=== PATIENT | male | born 1945 | race Caucasian/White ===

== ENCOUNTER 2020-01-18 21:05 | Inpatient (IN) | payer MEDICARE ==
[~2020-01-18] VITALS: Ht 180.3 cm; Wt 79.4 kg
[2020-01-19] MEDS ORDERED: ACETAMINOPHEN 325 MG TABLET PO PRN (00:30)
[2020-01-19] MEDS ORDERED: LORAZEPAM 0.5 MG TABLET PO PRN (00:30)
[2020-01-19] MEDS ORDERED: MAG HYDROX/AL HYDROX/SIMETH 30 ML UDC PO PRN (00:30)
[2020-01-19] MEDS ORDERED: ZOLPIDEM TARTRATE 5 MG TABLET PO PRN (00:30)
[2020-01-19] MEDS ORDERED: BLOOD SUGAR DIAGNOSTIC 1 EACH STRIP IN ONE (00:30)
[2020-01-19 01:56] VITALS: BP 90/55
[2020-01-19] MEDS ORDERED: QUET100T PO (02:39)
[2020-01-19] MEDS ORDERED: DIVA500T2 PO (02:39)
[2020-01-19 06:45] LABS: CALCIUM, SERUM 8.9 mg/dL (8.5-10.1); CARBON DIOXIDE 26 mmol/L (21-32); CHLORIDE 107 mmol/L (98-107); CREATININE 1.4 mg/dL (0.6-1.3); GLUCOSE 97 mg/dL (74-106); POTASSIUM 4.2 mmol/L (3.5-5.1); SODIUM SERUM 144 mmol/L (136-145); UREA NITROGEN, BLOOD 28 mg/dL (7-18)
[2020-01-19 08:00] VITALS: BP 97/68
[2020-01-19 16:00] VITALS: BP 131/84
[2020-01-19 20:04] VITALS: BP 127/89
[2020-01-19 20:48] LABS: CREATININE, URINE 193.3 MG/DL (30.0-125.0); URINE TOTAL PROTEIN 33.1 mg/dL (0-11.9)
[2020-01-19] MEDS: DIVALPROEX SODIUM 250 MG TABLET.DR PO SCH (20:59)
[2020-01-19 21:14] LABS: APPEARANCE,URINE CLEAR (CLEAR); BILIRUBIN,URINE NEGATIVE (NEGATIVE); BLOOD, URINE NEGATIVE Ery/uL (NEGATIVE); COLOR,URINE YELLOW (YELLOW); KETONES,URINE NEGATIVE (NEGATIVE); LEUKOCYTE ESTERASE ,URINE NEGATIVE (NEGATIVE); NITRITE, URINE NEGATIVE (NEGATIVE); PROTEIN,URINE NEGATIVE (NEGATIVE); UGLUCOSE NEGATIVE (NEGATIVE); UROBILINOGEN,URINE 0.2 EU/dL (0.2)
[2020-01-19] MEDS ORDERED: QUETIAPINE FUMARATE 100 MG TABLET PO SCH (22:00)
[2020-01-19 22:10] LABS: EOSINOPHIL,URINE None Seen
[2020-01-20 06:50] LABS: BASOPHILS % (AUTO) 0.5 % (0.0-2.0); EOSINOPHILS % (AUTO) 3.3 % (0.0-6.0); HEMATOCRIT 42 % (39-51); LYMPHOCYTES # (AUTO) 0.8 /CMM (0.8-4.8); MEAN CORPUSCULAR HGB CONC 33 g/dl (31.0-36.0); MEAN CORPUSCULAR VOLUME 101 fL (80-96); MONOCYTES # (AUTO) 0.5 /CMM (0.1-1.30); MONOCYTES % (AUTO) 12.2 % (2.0-12.0); NEUTROPHILS # (AUTO) 2.6 /CMM (1.8-8.9); PLATELET COUNT (AUTO) 156 /CMM (150-450); RED BLOOD CELL COUNT(AUTO) 4.18 MIL/uL (4.5-6.0); WHITE BLOOD COUNT (AUTO) 4.1 K/uL (4.3-11.0)
[2020-01-20 07:15] LABS: ALBUMIN 2.9 g/dL (3.4-5.0); BILIRUBIN,TOTAL 0.5 mg/dL (0.2-1.0); CALCIUM, SERUM 8.6 mg/dL (8.5-10.1); PHOSPHORUS 3.2 mg/dL (2.5-4.9); TOTAL PROTEIN, SERUM 5.6 g/dL (6.4-8.2)
[2020-01-20 08:00] VITALS: BP 116/77
[2020-01-20] MEDS: QUETIAPINE FUMARATE 100 MG TABLET PO SCH (08:42)
[2020-01-20] MEDS: DIVALPROEX SODIUM 250 MG TABLET.DR PO SCH ×2 (08:42→20:32)
[2020-01-20] MEDS: MAGNESIUM HYDROXIDE 30 ML UDC PO PRN (11:36)
[2020-01-20 16:00] VITALS: BP 120/83
[2020-01-20 20:00] VITALS: BP 114/76
[2020-01-20] MEDS ORDERED: QUETIAPINE FUMARATE 100 MG TABLET PO SCH ×3 (21:00→22:00)
[2020-01-21 07:17] LABS: ALBUMIN 2.9 g/dL (3.4-5.0); BILIRUBIN,TOTAL 0.4 mg/dL (0.2-1.0); CALCIUM, SERUM 8.4 mg/dL (8.5-10.1); POTASSIUM 4.2 mmol/L (3.5-5.1); TOTAL PROTEIN, SERUM 5.6 g/dL (6.4-8.2)
[2020-01-21 08:00] VITALS: BP 110/69
[2020-01-21] MEDS: QUETIAPINE FUMARATE 100 MG TABLET PO SCH (08:00)
[2020-01-21] MEDS: DIVALPROEX SODIUM 250 MG TABLET.DR PO SCH ×3 (08:00→17:06)
[2020-01-21] MEDS: MAGNESIUM HYDROXIDE 30 ML UDC PO PRN (10:51)
[2020-01-21 16:00] VITALS: BP 116/54
[2020-01-21] MEDS: DOCUSATE SODIUM 100 MG CAPSULE PO SCH (17:00)
[2020-01-21] MEDS ORDERED: BISACODYL SUPP (10 MG) 10 MG/SUPP.RECT SUPP.RECT RC PRN (17:00)
[2020-01-21 20:00] VITALS: BP 106/73
[2020-01-21] MEDS ORDERED: QUETIAPINE FUMARATE 100 MG TABLET PO SCH (21:00)
[2020-01-21] MEDS ORDERED: DIVALPROEX SODIUM 250 MG TABLET.DR PO SCH (22:00)
[2020-01-22 07:08] LABS: BASOPHILS % (AUTO) 0.5 % (0.0-2.0); EOSINOPHILS % (AUTO) 4.4 % (0.0-6.0); HEMATOCRIT 44 % (39-51); HEMOGLOBIN 14.3 g/dL (13.5-17.5); LYMPHOCYTES # (AUTO) 0.5 /CMM (0.8-4.8); LYMPHOCYTES % (AUTO) 12.6 % (20.0-44.0); MEAN CORPUSCULAR HGB CONC 33 g/dl (31.0-36.0); MEAN CORPUSCULAR VOLUME 100 fL (80-96); MONOCYTES # (AUTO) 0.6 /CMM (0.1-1.30); MONOCYTES % (AUTO) 15.2 % (2.0-12.0); NEUTROPHILS # (AUTO) 2.8 /CMM (1.8-8.9); NEUTROPHILS % (AUTO) 67.3 % (43.0-81.0); PLATELET COUNT (AUTO) 141 /CMM (150-450); RED BLOOD CELL COUNT(AUTO) 4.35 MIL/uL (4.5-6.0); WHITE BLOOD COUNT (AUTO) 4.1 K/uL (4.3-11.0)
[2020-01-22 07:35] LABS: ALBUMIN 2.9 g/dL (3.4-5.0); BILIRUBIN,DIRECT 0.1 mg/dL (0.0-0.2); BILIRUBIN,TOTAL 0.5 mg/dL (0.2-1.0); CALCIUM, SERUM 8.5 mg/dL (8.5-10.1); TOTAL PROTEIN, SERUM 5.7 g/dL (6.4-8.2)
[2020-01-22] MEDS: DOCUSATE SODIUM 100 MG CAPSULE PO SCH (08:21)
[2020-01-22] MEDS: QUETIAPINE FUMARATE 100 MG TABLET PO SCH (08:21)
[2020-01-22] MEDS: DIVALPROEX SODIUM 250 MG TABLET.DR PO SCH (08:21)
[2020-01-22 08:30] VITALS: BP 124/77
[2020-01-22] MEDS ORDERED: ACETYLCYSTEINE 10% 3,000 MG/30 ML VIAL PO ONE (11:00)
[2020-01-22] MEDS ORDERED: ACETYLCYSTEINE 10% 3,000 MG/30 ML VIAL PO SCH (13:00)
[2020-01-22] MEDS ORDERED: ACET-868 PO (13:42)
[2020-01-22] MEDS ORDERED: ACET100V4 PO (13:42)
[2020-01-22] MEDS ORDERED: MAG30ORA PO (13:42)
[2020-01-22] MEDS ORDERED: BISA10SU11 RC (13:42)
[2020-01-22] MEDS ORDERED: DOCU-141 PO (13:42)
[2020-01-22] MEDS ORDERED: MAGN400O6 PO (13:42)
[2020-01-22] MEDS ORDERED: LORA-259 PO (13:42)
[2020-01-22] MEDS ORDERED: ZOLP5TAB8 PO (13:42)
[2020-01-22] MEDS ORDERED: QUETIAPINE FUMARATE 100 MG TABLET PO SCH (21:00)
[2020-01-25] MEDS ORDERED: QUET100T PO (15:32)
== END 2020-01-22 12:45 | disposition short-term general hospital (02) | DRG 885 ==
LOC: GPS 01-19 00:11
PROVIDERS: ADMIT Psychiatry & Neurology Psychiatry; ATTEND Nurse Practitioner Acute Care
DX: F31.64 Bipolar disorder, current episode mixed, severe, with psychotic features (principal); N17.0 Acute kidney failure with tubular necrosis; F29 Unspecified psychosis not due to a substance or known physiological condition; F41.9 Anxiety disorder, unspecified; E78.5 Hyperlipidemia, unspecified; M19.90 Unspecified osteoarthritis, unspecified site; N28.1 Cyst of kidney, acquired; N40.0 Benign prostatic hyperplasia without lower urinary tract symptoms; Z79.899 Other long term (current) drug therapy; Z85.72 Personal history of non-Hodgkin lymphomas; Z86.718 Personal history of other venous thrombosis and embolism; R74.0 Nonspecific elevation of levels of transaminase and lactic acid dehydrogenase [LDH]; Z85.820 Personal history of malignant melanoma of skin
CPT/HCPCS: 36415; 76700-TC; 80048-TC; 80053-TC; 80061-TC; 80076-TC; 80164-TC; 81000-TC; 82550-TC; 82570-TC; 83735-TC; 84100-TC; 84155-TC; 84300-TC; 85025-TC; 85610-TC; 87081-TC; G0480

== ENCOUNTER 2020-01-22 13:31 | Inpatient (IN) | payer MEDICARE ==
[~2020-01-22] VITALS: Ht 180.3 cm; Wt 80.3 kg
[2020-01-22 13:15] VITALS: BP 101/67
[2020-01-22] MEDS ORDERED: LORA-259 PO (13:42)
[2020-01-22] MEDS ORDERED: BISA10SU11 RC (13:42)
[2020-01-22] MEDS ORDERED: ACET100V4 PO (13:42)
[2020-01-22] MEDS ORDERED: ZOLP5TAB8 PO (13:42)
[2020-01-22] MEDS ORDERED: MAG30ORA PO (13:42)
[2020-01-22] MEDS ORDERED: MAGN400O6 PO (13:42)
[2020-01-22] MEDS ORDERED: DOCU-141 PO (13:42)
[2020-01-22] MEDS ORDERED: ACET-868 PO (13:42)
--- NOTE | 2020-01-22 14:15 | NUR ---
MS SCHOOL AGE PROGRAM TEACHER NOTES RECEIVED PT IN A WHEELCHAIR. DIRECT ADMIT FROM GPS. PT ARRIVED IN THE UNIT AT 1310. VS TAKEN AND RECORDED. PT A/O X3-4, AMBULATORY WITH STEADY GAIT. PT TOLERATING RA, WITH NO ACUTE RESPIRATORY DISTRESS NOTED. PT DENIES ANY PAIN OR DISCOMFORT AT THE TIME OF TRANSFER. PT ABLE TO PROVIDE HISTORY. PT ORIENTED TO THE ROOM, STAFF, BATHROOM, MEALS, ETC. SKIN ASSESSED AND INTACT; NOTED COUPLE SCABS AND INCISION SCARS AND FILED IN THE CHART. PIV INSERTED TO RFA G20, FLUSHED WITH NS, INTACT AND OPERATIONAL. PT KEPT COMFORTABLE IN BED. CALL LIGHT KEPT WITHIN REACH. PT AWARE HE IS ON 14-DAY HOLD. SITTER AT BEDSIDE PRESENT. PT'S BED IN LOWEST, LOCKED POSITION X2. ADVENTURE EDUCATION TEACHER/CN MADE AWARE OF ADMISSION, ORDERS TO PLACE. WILL CONTINUE PLAN OF CARE.
--- NOTE | 2020-01-22 14:30 | NUR ---
MS RN NOTES PT DENIES ANY OF SOCIAL ISSUES. ALSO DENIES ANY SUICIDAL IDEATIONS. PT HAS SITTER AT BEDSIDE. WILL CONTINUE TO MONITOR.
[2020-01-22] MEDS ORDERED: ACETYLCYSTEINE IV 12,000 MG in IV D5W 200 ML IV ONE (15:00)
[2020-01-22] MEDS ORDERED: ONDANSETRON HCL/PF 4 MG/2 ML VIAL IVP PRN (15:00)
[2020-01-22] MEDS ORDERED: MAG HYDROX/AL HYDROX/SIMETH 30 ML UDC PO PRN (15:00)
[2020-01-22] MEDS ORDERED: BISACODYL SUPP (10 MG) 10 MG/SUPP.RECT SUPP.RECT RC PRN (15:00)
[2020-01-22] MEDS ORDERED: Z GUARD REMEDY 2 OZ OINT TP PRN (15:00)
[2020-01-22] MEDS ORDERED: MAGNESIUM HYDROXIDE 30 ML UDC PO PRN (15:00)
[2020-01-22] MEDS ORDERED: ACETYLCYSTEINE IV 4,000 MG in IV D5W 500 ML IV ONE (16:00)
[2020-01-22] MEDS: DOCUSATE SODIUM 100 MG CAPSULE PO SCH (16:20)
[2020-01-22 17:19] LABS: ALBUMIN 2.7 g/dL (3.4-5.0); BILIRUBIN,DIRECT 0.1 mg/dL (0.0-0.2); BILIRUBIN,TOTAL 0.3 mg/dL (0.2-1.0); TOTAL PROTEIN, SERUM 5.8 g/dL (6.4-8.2)
--- NOTE | 2020-01-22 18:27 | NUR ---
MS RN CLOSING NOTES PT REMAINS IN BED, A/O X3-4, AMBULATORY WITH STEADY GAIT. SITTER AT BEDSIDE PRESENT. PT TOLERATING RA, WITH NO ACUTE RESPIRATORY DISTRESS NOTED. PT DENIES ANY PAIN OR DISCOMFORT AT THE MOMENT. PIV INSERTED TO RFA G20, FLUSHED WITH NS, INTACT AND OPERATIONAL. ALL NEEDS AND CARE ATTENDED. PT KEPT COMFORTABLE IN BED. CALL LIGHT KEPT WITHIN REACH. PT'S BED IN LOWEST, LOCKED POSITION X2. WILL ENDORSE TO INCOMING NIGHT NURSE FOR [facility]ALEY.
--- NOTE | 2020-01-22 19:24 | NUR ---
MS RN OPENING NOTES PATIENT AWAKE IN BED. A/OX3. ON 5250 HOLD; SITTER PRESENT AT THE BEDSIDE. ON ROOM AIR. NO S/S OF SOB OR C/O PAIN AT THIS TIME. PATIENT DENIES SI/HI/. IV PRESENT ON RIGHT FOREARM, SIZE 20, INTACT & PATENT, HEP LOCKED. PATIENT ABLE TO VERBALIZE NEEDS. SAFETY MEASURES IN PLACE. BED LOCKED, SIDE RAILS X2, CALL LIGHT WITHIN REACH. WILL CONTINUE TO MONITOR.
[2020-01-22] MEDS ORDERED: ACETYLCYSTEINE IV 8,000 MG in IV D5W 1,000 ML IV ONE (20:00)
[2020-01-22 20:14] VITALS: BP 120/81
--- NOTE | 2020-01-22 20:45 | NUR ---
MS RN NOTES SPOKE TO FABIAN FROM POISON CONTROL VIA TELEPHONE. PER FABIAN, CHECK PATIENT'S LIVER ENZYMES AND INR 1 HOUR BEFORE ACETYLCYSTEINE INFUSION IS COMPLETED AND FOLLOW UP WITH POISON CONTROL .
[2020-01-22] MEDS: LORAZEPAM 1 MG TABLET PO PRN (21:49)
--- NOTE | 2020-01-22 21:54 | NUR ---
MS RN NOTES PATIENT REQUESTED ATIVAN. ADMINISTERED PRN ATIVAN 0.5MG. VITAL SIGNS - BP:112/65 HR: 81 RR: 20 SPO2: 97 ON ROOM AIR. WILL CONTINUE TO MONITOR.
[2020-01-22 22:59] LABS: ALBUMIN 2.8 g/dL (3.4-5.0); BILIRUBIN,DIRECT 0.1 mg/dL (0.0-0.2); BILIRUBIN,TOTAL 0.4 mg/dL (0.2-1.0); TOTAL PROTEIN, SERUM 5.8 g/dL (6.4-8.2)
[2020-01-23 06:34] LABS: BASOPHILS % (AUTO) 0.6 % (0.0-2.0); EOSINOPHILS % (AUTO) 4.4 % (0.0-6.0); HEMATOCRIT 43 % (39-51); HEMOGLOBIN 14.4 g/dL (13.5-17.5); LYMPHOCYTES # (AUTO) 0.5 /CMM (0.8-4.8); LYMPHOCYTES % (AUTO) 11.6 % (20.0-44.0); MEAN CORPUSCULAR HGB CONC 33 g/dl (31.0-36.0); MEAN CORPUSCULAR VOLUME 99 fL (80-96); MONOCYTES # (AUTO) 0.8 /CMM (0.1-1.30); MONOCYTES % (AUTO) 19.8 % (2.0-12.0); NEUTROPHILS # (AUTO) 2.7 /CMM (1.8-8.9); NEUTROPHILS % (AUTO) 63.6 % (43.0-81.0); PLATELET COUNT (AUTO) 148 /CMM (150-450); RED BLOOD CELL COUNT(AUTO) 4.37 MIL/uL (4.5-6.0); WHITE BLOOD COUNT (AUTO) 4.2 K/uL (4.3-11.0)
--- NOTE | 2020-01-23 06:56 | NUR ---
MS RN CLOSING NOTES PATIENT SLEEPING IN BED, EASY TO AWAKEN. SITTER PRESENT AT THE BEDSIDE. PATIENT REMAINED STABLED DURING SHIFT. IV ON RIGHT FA, SIZE 20, INTACT & PATENT WITH ACETYLCYSTEINE IV RUNNING AT 65 ML/HR. SAFETY MEASURES IN PLACE. BED LOCKED, SIDE RAILS X2, CALL LIGHT WITHIN REACH. WILL ENDORSE TO DAY SHIFT NURSE PLAN OF CARE.
[2020-01-23 07:09] LABS: THYROID STIMULATING HORMONE 4.718 uIU/mL (0.358-3.74)
[2020-01-23 07:16] LABS: ALBUMIN 2.7 g/dL (3.4-5.0); BILIRUBIN,DIRECT 0.1 mg/dL (0.0-0.2); BILIRUBIN,TOTAL 0.3 mg/dL (0.2-1.0); CALCIUM, SERUM 8.7 mg/dL (8.5-10.1); PHOSPHORUS 2.9 mg/dL (2.5-4.9); POTASSIUM 4.1 mmol/L (3.5-5.1); TOTAL PROTEIN, SERUM 5.7 g/dL (6.4-8.2)
--- NOTE | 2020-01-23 07:30 | NUR ---
MS/RN OPENING NOTE Patient is resting in bed, A/O x4, showing no signs of acute distress or SOB, stable on RA. IV line in the RFA #20g is clean and intact running acetylcysteine @ 65ml/hr. Per maintenance technician 3rd shift RN, there is order for lab to draw LFTs 1 hour before medication is finished and to update poison control with labs and patient condition (poison control). Bed is in lowest position, side rails x3 in upright position, call light is within reach and patient is aware of how to call for assistance when needed. Sitter is at the bedside, patient is on 5250 hold. Will continue with plan of care.
[2020-01-23 08:00] VITALS: BP 120/70
[2020-01-23] MEDS: DOCUSATE SODIUM 100 MG CAPSULE PO SCH ×2 (08:22→17:00)
[2020-01-23 11:58] LABS: ALBUMIN 2.8 g/dL (3.4-5.0); BILIRUBIN,DIRECT 0.1 mg/dL (0.0-0.2); BILIRUBIN,TOTAL 0.3 mg/dL (0.2-1.0); TOTAL PROTEIN, SERUM 5.9 g/dL (6.4-8.2)
[2020-01-23] MEDS: LORAZEPAM 1 MG TABLET PO PRN ×2 (12:00→20:16)
--- NOTE | 2020-01-23 14:11 | NUR ---
MS/RN NOTE Spoke with Nolberto from poison control and updated her on patient's LFT results. She stated that patient has completed their dose of acetylcysteine.
[2020-01-23 16:00] VITALS: BP 128/77
--- NOTE | 2020-01-23 16:25 | NUR ---
MS/RN NOTE Ativan 0.5mg given at 1200. Scanned medication but forgot to save. Patient is A/O x4, patient is aware.
[2020-01-23 17:13] VITALS: BP 128/77
--- NOTE | 2020-01-23 19:05 | NUR ---
RN MS OPENING NOTES RECEIVED PATIENT IN ROOM AWAKE ALERT AND ORIENTED X 3, ABLE TO MAKE SIMPLE NEEDS KNOWN, RESPIRATIONS EVEN AND UNLABORED WITH EQUAL RISE AND FALL OF CHEST, DENIES ANY PAIN OR DISCOMFORT AT THIS TIME, IV SITE TO RIGHT FA #20 G INTACT AND PATENT NO REDNESS, NO INFILTRATION PRESENT, SITTER AT BEDSIDE, SAFETY PRECAUTIONS IN PLACE, LOW BED AND LOCKED, Q 15 MINS CHECKS DONE. FLUIDS AND SNACKS OFFERED.REMAINS COMFORTABLE AT THIS TIME. ALL NEEDS ATTENDED WILL CONTINUE TO MONITOR.
--- NOTE | 2020-01-23 19:36 | NUR ---
MS/RN CLOSING NOTE Patient is resting in bed, A/O x4, showing no signs of acute distress or SOB, stable on RA. IV line in the RFA #20g is clean and intact s/l. All patient needs met, all due meds given. Bed is in lowest position, side rails x3 in upright position, call light is within reach and patient is aware of how to call for assistance when needed. Sitter is at the bedside, patient is on 5250 hold. Will continue with plan of care.
[2020-01-23 20:00] VITALS: BP 130/83
--- NOTE | 2020-01-23 20:16 | NUR ---
RN MS NOTES PATIENT COMPLAINT OF FEELING ANXIOUS STATES CAN I HAVE ATIVAN ATIVAN ORDERED GIVEN 0.5MG GIVEN THE REST WASTED AND WITNESS WITH ANOTHER RN.WILL CONTINUE TO MONITOR
[2020-01-23 20:18] VITALS: BP 130/83
--- NOTE | 2020-01-24 06:11 | NUR ---
rn ms notes patient refused follow up pictures for friday states I have no wounds just scab on my hand". left hand scab intact clean and dry.
--- NOTE | 2020-01-24 06:27 | NUR ---
RN MS CLOSING NOTES PATIENT IN ROOM AWAKE ALERT AND ORIENTED X 3, ABLE TO MAKE SIMPLE NEEDS KNOWN, RESPIRATIONS EVEN AND UNLABORED WITH EQUAL RISE AND FALL OF CHEST, DENIES ANY PAIN OR DISCOMFORT AT THIS TIME, IV SITE TO RIGHT FA #20 G INTACT AND PATENT NO REDNESS, NO INFILTRATION PRESENT, SITTER AT BEDSIDE, SAFETY PRECAUTIONS IN PLACE, LOW BED AND LOCKED, Q 15 MINS CHECKS DONE. FLUIDS, TOILETING AND SNACKS OFFERED.REMAINS COMFORTABLE AT THIS TIME. ALL NEEDS ATTENDED WILL CONTINUE TO MONITOR AND ENDORSE TO NEXT SHIFT, DID NOT VERBALIZE ANY SI OR HI.REMAINS CALM AND COOPERATE THROUGHOUT SHIFT.
--- NOTE | 2020-01-24 08:15 | NUR ---
m/s finish filer: md visit seen by dr. sin. ask md re: gi consult on his progress notes, per md nñuez saw him on the at 1504 per his progress notes in gps unit.
[2020-01-24] MEDS: DOCUSATE SODIUM 100 MG CAPSULE PO SCH ×2 (08:34→17:00)
--- NOTE | 2020-01-24 09:00 | NUR ---
m/s mold cutting machine operator: psych f/u seen by dr. mock and per dr. mock will not start him on psych medications yet until his liver function gets better. pt made aware. sitter remains at bedside. will continue to monitor.
[2020-01-24 09:30] VITALS: BP 119/73
--- NOTE | 2020-01-24 09:45 | NUR ---
m/s warp preparer: notes mrsa suirvellance collected to nostrils. called lab to tile picker the specimen in ref, spoke to ayanna.
--- NOTE | 2020-01-24 12:00 | NUR ---
m/s habitat conservation planner: notes having lunch at this time with sitter at bedside.
--- NOTE | 2020-01-24 15:00 | NUR ---
m/s garage hand: notes resting quietly in bed. sitter remains at bedside. no distress noted.
--- NOTE | 2020-01-24 18:32 | NUR ---
m/s nursing scheduler: notes resting comfortable in bed. no distress noted. will continue to monitor.
--- NOTE | 2020-01-24 19:05 | NUR ---
m/s sportspersons: notes bedside report given to laquita (rn) for continuity of care.
[2020-01-24 20:00] VITALS: BP 116/72
[2020-01-24] MEDS: LORAZEPAM 1 MG TABLET PO PRN (20:28)
[2020-01-25 08:28] LABS: BASOPHILS % (AUTO) 0.8 % (0.0-2.0); EOSINOPHILS % (AUTO) 4.9 % (0.0-6.0); HEMATOCRIT 46 % (39-51); HEMOGLOBIN 15.3 g/dL (13.5-17.5); LYMPHOCYTES # (AUTO) 0.9 /CMM (0.8-4.8); LYMPHOCYTES % (AUTO) 19.5 % (20.0-44.0); MEAN CORPUSCULAR HGB CONC 33 g/dl (31.0-36.0); MEAN CORPUSCULAR VOLUME 99 fL (80-96); MONOCYTES # (AUTO) 0.6 /CMM (0.1-1.30); MONOCYTES % (AUTO) 14.1 % (2.0-12.0); NEUTROPHILS # (AUTO) 2.7 /CMM (1.8-8.9); NEUTROPHILS % (AUTO) 60.7 % (43.0-81.0); PLATELET COUNT (AUTO) 167 /CMM (150-450); RED BLOOD CELL COUNT(AUTO) 4.63 MIL/uL (4.5-6.0); WHITE BLOOD COUNT (AUTO) 4.5 K/uL (4.3-11.0)
[2020-01-25 08:31] LABS: ALBUMIN 3.2 g/dL (3.4-5.0); BILIRUBIN,DIRECT 0.1 mg/dL (0.0-0.2); BILIRUBIN,TOTAL 0.5 mg/dL (0.2-1.0); CALCIUM, SERUM 9.2 mg/dL (8.5-10.1); CREATININE 1.2 mg/dL (0.6-1.3); POTASSIUM 4.3 mmol/L (3.5-5.1); TOTAL PROTEIN, SERUM 6.4 g/dL (6.4-8.2)
--- NOTE | 2020-01-25 09:10 | NUR ---
ms rn received on bed, awake,alert,oriented x4,not in any form of distress, respirations even and unlabored,no sob noted, lungs are clear,abdomen soft,positive bowel sounds,denies pain at this time,on 14 day hold, w/ a sitter for comfort and safety,will monitor patient.
--- NOTE | 2020-01-25 09:55 | NUR ---
ms dany breakfast served,due meds givjenise,tolerated well.
[2020-01-25] MEDS: DOCUSATE SODIUM 100 MG CAPSULE PO SCH ×2 (10:30→17:00)
--- NOTE | 2020-01-25 11:59 | NUR ---
Family Contact: SW called the pts son, Reilly ([phone]), and informed him that the SW recommends two of the following facilities ([facility] as well as [facility]) and will need to proceed with the discharge planning. Pts son stated that he will discuss the discharge planning options with his and will contact the SW soon so that referrals can be sent out.
--- NOTE | 2020-01-25 13:00 | NUR ---
ms rn was seen by dr. emili campbell/ orders made and carried out.
[2020-01-25] MEDS ORDERED: QUET100T PO (15:32)
[2020-01-25 16:00] VITALS: BP 107/77
--- NOTE | 2020-01-25 17:05 | NUR ---
ms rn ready to be transferred to [facility],refused to take picture on left hand w/ a small scab, clean and dry.
[2020-01-25] MEDS ORDERED: DOCU100C36 PO (17:52)
[2020-01-25] MEDS ORDERED: MAG30ORA PO (17:52)
[2020-01-25] MEDS ORDERED: MAGN400O6 PO (17:52)
[2020-01-25] MEDS ORDERED: LORA-259 PO (17:52)
[2020-01-25] MEDS ORDERED: BISA10SU11 RC (17:52)
[2020-01-25] MEDS ORDERED: ALLA266C2 TP (17:54)
--- NOTE | 2020-01-25 18:00 | NUR ---
ms rn patient transferred to [facility], report given to dany Walsh.
[2020-01-25] MEDS ORDERED: QUETIAPINE FUMARATE 100 MG TABLET PO SCH (22:00)
== END 2020-01-25 17:04 | DRG 917 ==
LOC: TELE 13:31 → MED 13:52
PROVIDERS: ADMIT Internal Medicine; ATTEND Nurse Practitioner Acute Care
DX: T39.1X1A Poisoning by 4-Aminophenol derivatives, accidental (unintentional), initial encounter (principal); N17.0 Acute kidney failure with tubular necrosis; R45.851 Suicidal ideations; F31.64 Bipolar disorder, current episode mixed, severe, with psychotic features; E78.5 Hyperlipidemia, unspecified; M19.90 Unspecified osteoarthritis, unspecified site; N40.0 Benign prostatic hyperplasia without lower urinary tract symptoms; Z85.820 Personal history of malignant melanoma of skin; Z86.718 Personal history of other venous thrombosis and embolism; F39 Unspecified mood [affective] disorder; Z91.5 Personal history of self-harm; R74.0 Nonspecific elevation of levels of transaminase and lactic acid dehydrogenase [LDH]; K71.2 Toxic liver disease with acute hepatitis; Y92.89 Other specified places as the place of occurrence of the external cause; Z85.72 Personal history of non-Hodgkin lymphomas
CPT/HCPCS: 36415; 80048-TC; 80061-TC; 80076-TC; 83735-TC; 84100-TC; 84443-TC; 85025-TC; 85610-TC; 87081-TC; G0378; J0132; J7040; J7060; J7070

== ENCOUNTER 2020-01-25 17:44 | Inpatient (IN) | payer MEDICARE ==
[~2020-01-25] VITALS: Ht 180.3 cm; Wt 81.2 kg
[~2020-01-25 17:44] MED LIST: ACET-868 PO; ACET100V4 PO; BISA10SU11 RC; DOCU-141 PO; LORA-259 PO; MAG30ORA PO; MAGN400O6 PO; QUET100T PO; ZOLP5TAB8 PO
[2020-01-25] MEDS ORDERED: BISA10SU11 RC (17:52)
[2020-01-25] MEDS ORDERED: DOCU100C36 PO (17:52)
[2020-01-25] MEDS ORDERED: MAG30ORA PO (17:52)
[2020-01-25] MEDS ORDERED: LORA-259 PO (17:52)
[2020-01-25] MEDS ORDERED: MAGN400O6 PO (17:52)
[2020-01-25] MEDS ORDERED: ALLA266C2 TP (17:54)
[2020-01-25 18:50] VITALS: BP 119/86
[2020-01-25] MEDS ORDERED: ACETAMINOPHEN 325 MG TABLET PO PRN (19:00)
[2020-01-25] MEDS ORDERED: LORAZEPAM 0.5 MG TABLET PO PRN (19:00)
[2020-01-25] MEDS ORDERED: MAGNESIUM HYDROXIDE 30 ML UDC PO PRN (19:00)
[2020-01-25] MEDS ORDERED: BLOOD SUGAR DIAGNOSTIC 1 EACH STRIP IN ONE (19:00)
[2020-01-25] MEDS ORDERED: MAG HYDROX/AL HYDROX/SIMETH 30 ML UDC PO PRN (19:00)
[2020-01-25] MEDS ORDERED: ZOLPIDEM TARTRATE 5 MG TABLET PO PRN (19:00)
--- NOTE | 2020-01-25 19:05 | NUR ---
GPS-RN NOTE: ADMISSION ADMITTED THIS 74-Y/O, MALE, FROM MED SURG, PATIENT ADMITTED ON 5250 HOLD. PER HOLD PT. SENT SUICIDAL TEXT TO SON AND MADE GESTURE BY OD ON TYLENOL. UPON FACE TO FACE ASSESSMENT, PATIENT IS A&O X1-3, FEELING DEPRESSED, WITH LIMITED INTERACTIONS WITH PEERS, COOPERATIVE WITH CARE. AMBULATORY WITH STEADY GAIT. IN NO APPARENT DISTRESS NOTED. SKIN ASSESSMENT DONE. PATIENT REFUSED TO SIGN ADMISSION CONSENTS D/T PT IS EXHAUSTED. PT'S RIGHTS HANDBOOK & PT. GUIDELINES BOOK GIVEN & DISCUSSED TO THE PATIENT. PT BELONGINGS WERE INVENTORIED & CHECKED FOR CONTRABAND. PT. IS UNDER THE PSYCHIATRIC CARE OF DR. COPELAND ORDERS OBTAINED & UNDER THE MEDICAL CARE OF DR. PEARSON. PAGED EPIC EVENT PROMOTER, SPOKE TO DR. MEGHANA SANTIAGO MADE AWARE OF PT'S ADMISSION AND MED RECON NEEDS TO BE DONE. PATIENT EDUCATED TO THE USE OF CALL RODRIGEZ. BED ALARM ON. ENVIRONMENTAL SAFETY CHECK DONE. BED LOCKED & IN LOW POSITION. WILL CONTINUE TO MONITOR Q15 MINUTES FOR SAFETY & BEHAVIOR.
[2020-01-25 20:09] VITALS: BP 118/71
[2020-01-25] MEDS: QUETIAPINE FUMARATE 100 MG TABLET PO SCH (21:27)
[2020-01-26 06:48] LABS: BASOPHILS % (AUTO) 0.7 % (0.0-2.0); EOSINOPHILS % (AUTO) 4.3 % (0.0-6.0); HEMATOCRIT 44 % (39-51); HEMOGLOBIN 14.6 g/dL (13.5-17.5); LYMPHOCYTES # (AUTO) 1.2 /CMM (0.8-4.8); LYMPHOCYTES % (AUTO) 26.1 % (20.0-44.0); MEAN CORPUSCULAR HGB CONC 33 g/dl (31.0-36.0); MEAN CORPUSCULAR VOLUME 99 fL (80-96); MONOCYTES # (AUTO) 0.5 /CMM (0.1-1.30); MONOCYTES % (AUTO) 10.4 % (2.0-12.0); NEUTROPHILS # (AUTO) 2.6 /CMM (1.8-8.9); NEUTROPHILS % (AUTO) 58.5 % (43.0-81.0); PLATELET COUNT (AUTO) 161 /CMM (150-450); RED BLOOD CELL COUNT(AUTO) 4.41 MIL/uL (4.5-6.0); WHITE BLOOD COUNT (AUTO) 4.5 K/uL (4.3-11.0)
[2020-01-26 06:58] LABS: CALCIUM, SERUM 8.9 mg/dL (8.5-10.1); CREATININE 1.1 mg/dL (0.6-1.3); POTASSIUM 4.2 mmol/L (3.5-5.1)
[2020-01-26 07:12] LABS: CHOLESTEROL 214 mg/dL (<200); HDL CHOLESTEROL 40 mg/dL (40-60); LDL 133 mg/dL (0-99); TRIGLYCERIDES 173 mg/dL (30-150)
[2020-01-26 08:00] VITALS: BP 130/78
--- NOTE | 2020-01-26 11:36 | NUR ---
Lionel Byrd made aware to reconcile meds and said ok.
--- NOTE | 2020-01-26 12:19 | NUR ---
Facility Referrals: Per pts son and probate conservator, Reilly ([phone]), SW faxed a referral to the following facilities. [facility] to the fax number: [phone] [facility] to the fax number: [phone]
--- NOTE | 2020-01-26 12:21 | NUR ---
Psychosocial Note: I, Quetajosseline De Leon MANAGER CARE, attest to the patients previous psychosocial information dated on 01/19/20. Update On Events leading to Admission and Discharge Plan: Pt has returned to the geropsych unit of the hospital within a week of his previous discharge date (01/22/20). Pt was discharged to the Medical Floor and then the pt came back to the Geriatric Psychiatric Unit on 01/25/20. Per hold, the pt was evaluated because he sent a suicidal text to his son and made gesture by overdose on tylenol. Upon face to face contact, the pt texted his son, "The pills did not workcall the construction quality control manager and come in the back room." Pt also stated, "Don't get involved or else I will run and you will find the body." Pt left detailed end of life instructions on his computer. As well as contacting the construction quality control manager and a mortuary today. Pt wanted to return to Assisted Living but cannot do so safely. Upon social service assistant evaluation, pt appears to be alert and oriented x4 (time, place, self and situation). Pt appears to be in a depressed mood and presents with a distressed affect. Pt states that his son was overreacting by this situation and states, "My son likes to put me in these places when he thinks that I am acting bizarre." Pt states that he does not have an appropriate appetite or sleeping pattern. Pt states that he lives at home alone and has been able to care for his own needs. Pts insight and judgment appear to be impaired and the pts impulse control is poor. DAVID spoke to the pts son and probate conservator, Reilly ([phone]), who stated that he would like to place the pt in an Assisted Living or a Memory Care Unit. DAVID will work with the pt, the pts son, and the MD regarding appropriate discharge planning. SW will form a safe and proper discharge.
[2020-01-26 16:00] VITALS: BP 110/77
[2020-01-26] MEDS: BISACODYL SUPP (10 MG) 10 MG/SUPP.RECT SUPP.RECT RC PRN (16:48)
[2020-01-26] MEDS ORDERED: Z GUARD REMEDY 2 OZ OINT TP SCH (17:30)
[2020-01-26] MEDS ORDERED: MAG HYDROX/AL HYDROX/SIMETH 30 ML UDC PO PRN (17:30)
[2020-01-26] MEDS ORDERED: BISACODYL SUPP (10 MG) 10 MG/SUPP.RECT SUPP.RECT RC SCH (17:30)
--- NOTE | 2020-01-26 19:51 | NUR ---
NURSES NOTES: RECEIVED PATIENT IN BED, AWAKE , ALERT, READING BOOK HIS ROOM , INTERACT WITH PEERS, NO COMPLAINS OF PAIN OR DISCOMFORT AT THIS TIME ,ENCOURAGED PT. TO EXPRESS FEELING SAFETY AND FALL PRECAUTIONS OBSERVED. Q15 MIN CHECKS CONTINUED. WILL CONTINUE TO MONITOR PATIENT FOR MOOD, SAFETY AND BEHAVIOR
[2020-01-26 20:22] VITALS: BP 114/50
[2020-01-26 20:37] VITALS: BP 118/65
[2020-01-26] MEDS: QUETIAPINE FUMARATE 100 MG TABLET PO SCH (21:20)
[2020-01-26] MEDS: MAGNESIUM HYDROXIDE 30 ML UDC PO SCH (21:25)
--- NOTE | 2020-01-26 21:33 | NUR ---
RN NOTES: MEDICATION REFUSAL PT. REFUSED MOM / MILK OF MAGNESIUM 30 ML PO HS ,PER PT. STATED I HAD BM AND NO NEEDED AT THIS TIME, WILL CONTINUITY WITH CARE.
[2020-01-27 08:00] VITALS: BP 108/75
[2020-01-27] MEDS: DOCUSATE SODIUM 100 MG CAPSULE PO SCH ×2 (09:00→16:32)
--- NOTE | 2020-01-27 09:01 | NUR ---
Facility Contact: Selena ([phone]) from [facility] called the SW and proceeded to ask the SW questions regarding the pts behavior. She stated that they have one bed available at this time and to have the family contact her directly if they are interested in placing the pt at their facility.
--- NOTE | 2020-01-27 09:33 | NUR ---
Facility Contact: SW called Ashley ([phone]) from [facility] to follow up on the referral for the pt. Ashley asked the SW questions regarding the pts behaviors and then stated that she would call the pt's son to discuss the finances with him. She stated she will call the SW back.
--- NOTE | 2020-01-27 15:40 | NUR ---
Individual Note: In lieu of group therapy due to COVID 19, SW met with the pt at bedside and informed him of his treatment plan. SW stated that she had referred him to two Assisted Livings that are interested in accepting the pt and that his son is working out the finances as his probate conservator. Pt stated that he feels as if he does not have many choices in his life anymore and he would just like to return to his home. SW stated that would not be a safe discharge due to his history and need for supervision. SW stated that he should talk to his son and come to a decision that they both can agree upon regarding his discharge.
[2020-01-27 16:00] VITALS: BP 111/69
--- NOTE | 2020-01-27 18:35 | NUR ---
PATIENT IN BED, AWAKE , ALERT, READING BOOK IN HIS ROOM , NO COMPLAINS OF PAIN OR DISCOMFORT AT THIS TIME ,ENCOURAGED PT. TO EXPRESS FEELING SAFETY AND FALL PRECAUTIONS OBSERVED. Q15 MIN CHECKS CONTINUED. WILL ENDORSE TO NEXT SHIFT FOR HALEY
[2020-01-27] MEDS: QUETIAPINE FUMARATE 100 MG TABLET PO SCH (19:34)
--- NOTE | 2020-01-27 20:03 | NUR ---
GPS/MATE FISHING VESSEL NOTES: PT. LAYING IN BED READING. NO DISTRESS OR AGITATION NOTED. QUIET AND COOPERATIVE AT THIS TIME. ISOLATIVE. NO C/O PAIN OR DISCOMFORT. SAFETY ENVIRONMENT OBSERVED AT ALL TIMES. WILL CONTINUE TO MONITOR Q 15 MIN FOR SAFETY AND BEHAVIOR.
[2020-01-27 20:42] VITALS: BP 115/77
[2020-01-27] MEDS: MAGNESIUM HYDROXIDE 30 ML UDC PO SCH (21:15)
[2020-01-28 07:12] LABS: BILIRUBIN,DIRECT 0.1 mg/dL (0.0-0.2); BILIRUBIN,TOTAL 0.4 mg/dL (0.2-1.0); TOTAL PROTEIN, SERUM 5.9 g/dL (6.4-8.2)
[2020-01-28 08:00] VITALS: BP 102/74
[2020-01-28] MEDS: DOCUSATE SODIUM 100 MG CAPSULE PO SCH ×2 (08:14→16:57)
--- NOTE | 2020-01-28 09:00 | NUR ---
RN NOTE- DEPRESSED, ISOLATIVE CALM DIRECTABLE. PT PO INTAKE GOOD. NO BEHAVIORAL ISSUES CURRENTLY DENIES SI HI AH VH
--- NOTE | 2020-01-28 11:06 | NUR ---
Facility Contact: Ashley ([phone]) from [facility] called the SW and stated that she spoke to the pts son and they are willing to go forward with [facility]. She stated that she will send the SW the 602 form and that she will also need a note from the MD stating that he believes the pt is safe to be discharged before the hold is up. SW stated that she will assist with the paperwork needed.
--- NOTE | 2020-01-28 11:09 | NUR ---
Family Contact: SW called the pts son and probate conservator, Reilly ([phone]), and left a voicemail stating that the SW would like to discuss the pts possible placement at [facility] with him.
--- NOTE | 2020-01-28 12:41 | NUR ---
Family Contact: Pts son and probate conservator, Reilly ([phone]), called the SW and stated that he would like to proceed with [facility] and so the SW stated that the projected discharge is for Friday. Pts son stated that he has concerns with the medications and stated that the pt did well on Depakote when he was previously at [facility]. SW encouraged him to get in touch with the psychiatrist regarding that concern. Pts son also stated that the 602 form would need to state that the pt has dementia and stated that he has paperwork from other physicians stating the pt has dementia that he would send to the SW.
[2020-01-28 16:00] VITALS: BP 101/79
--- NOTE | 2020-01-28 19:54 | NUR ---
GPS OPENING NOTE: PATIENT AWAKE, READING BOOKS, INTERACTIVE, DENIES SI/HI, NO AGITATION NOTED, NO S/S OF PAIN AND DISCOMFORT, WILL CONTINUE TO MONITOR Q15 MINS FOR SAFETY
[2020-01-28] MEDS: LORAZEPAM 1 MG TABLET PO PRN (20:13)
--- NOTE | 2020-01-28 20:15 | NUR ---
GPS RN NOTE: PATIENT C/O FEELING ANXIOUS, ATIVAN 1 MG PO GIVEN ORDERED AND PER PATIENT REQUEST. WILL CONTINUE TO MONITOR Q15 MINS FOR SAFETY
[2020-01-28] MEDS: QUETIAPINE FUMARATE 100 MG TABLET PO SCH (21:04)
[2020-01-28 21:16] VITALS: BP 112/73
[2020-01-28] MEDS: MAGNESIUM HYDROXIDE 30 ML UDC PO SCH (22:00)
--- NOTE | 2020-01-28 22:02 | NUR ---
GPS RN NOTE: REFUSED MOM PATIENT REFUSED MOM ORDERED, PATIENT STATED THAT HE ALREADY HAVE A BM. WILL CONTINUE TO MONITOR Q15 MINS FOR SAFETY
[2020-01-29 08:00] VITALS: BP 127/75
--- NOTE | 2020-01-29 08:00 | NUR ---
GPS/RN OPENING NOTE: RECEIVED PATIENT AWAKE, ALERT AND ORIENTED X 2-3, CALM, COOPERATIVE, NEEDY, DENIES SI/HI, AH/VH, NO AGITATION NOTED AT THIS TIME, WILL CONTINUE TO MONITOR Q15 MINS FOR SAFETY
[2020-01-29] MEDS: DOCUSATE SODIUM 100 MG CAPSULE PO SCH ×2 (08:30→16:59)
--- NOTE | 2020-01-29 08:32 | NUR ---
GPS RN NOTES PATIENT REFUSED DOCUSATE SODIUM.
[2020-01-29 16:00] VITALS: BP 110/70
[2020-01-29] MEDS: LORAZEPAM 1 MG TABLET PO PRN (19:56)
[2020-01-29 20:00] VITALS: BP 120/72
[2020-01-29 20:10] VITALS: BP 120/72
[2020-01-29] MEDS: QUETIAPINE FUMARATE 100 MG TABLET PO SCH (21:24)
[2020-01-29] MEDS: MAGNESIUM HYDROXIDE 30 ML UDC PO SCH (21:24)
[2020-01-30 08:00] VITALS: BP 104/75
[2020-01-30] MEDS: DOCUSATE SODIUM 100 MG CAPSULE PO SCH ×2 (08:29→16:37)
--- NOTE | 2020-01-30 09:28 | NUR ---
GPS RN NOTED: PATIENT AWAKE, RESTING IN BED ISOLATIVE DENIES SI/HI DENIES FEELING DEPRESSED COMPLIANT WITH AM MEDICATIONS NO S/S DISTRESS NOTED WILL CONTINUE TO MONITOR Q15 MINS FOR SAFETY AND BEHAVIOR.
[2020-01-30 16:00] VITALS: BP 116/90
[2020-01-30] MEDS: LORAZEPAM 1 MG TABLET PO PRN (19:23)
[2020-01-30 20:00] VITALS: BP 117/87
[2020-01-30] MEDS: QUETIAPINE FUMARATE 100 MG TABLET PO SCH (20:02)
[2020-01-30 20:04] VITALS: BP 117/87
[2020-01-30] MEDS: MAGNESIUM HYDROXIDE 30 ML UDC PO SCH (21:15)
[2020-01-31 08:00] VITALS: BP 119/52
[2020-01-31] MEDS: DOCUSATE SODIUM 100 MG CAPSULE PO SCH ×2 (08:10→16:40)
--- NOTE | 2020-01-31 09:00 | NUR ---
RN NOTE- PATIENT AWAKE, RESTING IN BED ISOLATIVE DENIES SI/HI DENIES FEELING DEPRESSED COMPLIANT WITH AM MEDICATIONS NO S/S DISTRESS NOTED WILL CONTINUE TO MONITOR Q15 MINS FOR SAFETY AND BEHAVIOR
--- NOTE | 2020-01-31 09:38 | NUR ---
Facility Contact: Ashley ([phone]) from [facility] called the SW and stated that she would need the Physicians Report to be sent over soon so that they can assist with placement.
--- NOTE | 2020-01-31 11:35 | NUR ---
Facility Referral: DAVID faxed an unsigned Physicians Report and a note from the MD as a suicidal clearance to [facility] with attn to Ashley to the fax number: [phone].
[2020-01-31 12:44] LABS: ALBUMIN 3.3 g/dL (3.4-5.0); BILIRUBIN,DIRECT 0.1 mg/dL (0.0-0.2); BILIRUBIN,TOTAL 0.4 mg/dL (0.2-1.0); TOTAL PROTEIN, SERUM 6.3 g/dL (6.4-8.2)
[2020-01-31] MEDS: BISACODYL SUPP (10 MG) 10 MG/SUPP.RECT SUPP.RECT RC PRN (14:33)
--- NOTE | 2020-01-31 14:33 | NUR ---
RN NOTE- PT C/O NO BM X 3 DAYS. REQUESTED DULCOLAX SUPPOSITORY. ADMINISTERED NOW.
--- NOTE | 2020-01-31 14:40 | NUR ---
Facility Contact: Ashley ([phone]) from [facility] called the SW and stated that the pt was accepted to their facility.
--- NOTE | 2020-01-31 14:40 | NUR ---
Facility Referral: DAVID faxed a completed Physicians Report and a note from the MD as a suicidal clearance to [facility] with attn to Ashley to the fax number: [phone].
--- NOTE | 2020-01-31 14:48 | NUR ---
Family Contact: SW called the pts son and probate conservator, Reilly ([phone]), who stated that he understands that the pt will be moved tomorrow and that he can help move his dad in. He stated that he would come brain picker the pt but is unsure about the time at this point.
--- NOTE | 2020-01-31 15:26 | NUR ---
Individual Note: In lieu of group therapy due to COVID 19, SW met with the pt in the activities room and informed him that he was going to be discharged the following day. SW stated that he is going to a facility that his son has approved called [facility] and he stated that he accepts this plan.
[2020-01-31 16:00] VITALS: BP_SYST 113; BP_SYST 152; BP_DIAS 55; BP_DIAS 80
[2020-01-31] MEDS: LORAZEPAM 1 MG TABLET PO PRN (19:35)
[2020-01-31 20:00] VITALS: BP 120/77
[2020-01-31] MEDS: QUETIAPINE FUMARATE 100 MG TABLET PO SCH (20:17)
[2020-01-31] MEDS: MAGNESIUM HYDROXIDE 30 ML UDC PO SCH (21:06)
[2020-02-01 08:00] VITALS: BP 117/86
[2020-02-01] MEDS: DOCUSATE SODIUM 100 MG CAPSULE PO SCH (08:15)
--- NOTE | 2020-02-01 09:00 | NUR ---
RN NOTE- AMBULATORY IN HALLS AND ROOM. WATCHING TV IN DAYROOM. C/O CONSTIPATION AGAIN THIS MORNING. WILL ADMINISTER DULCOLAX SUPPOSITORY. DENIES SI/HI DENIES FEELING DEPRESSED COMPLIANT WITH AM MEDICATIONS NO S/S DISTRESS NOTED WILL CONTINUE TO MONITOR Q15 MINS FOR SAFETY AND BEHAVIOR
[2020-02-01] MEDS: BISACODYL SUPP (10 MG) 10 MG/SUPP.RECT SUPP.RECT RC PRN (09:08)
--- NOTE | 2020-02-01 09:08 | NUR ---
RN NOTE- PT W C/O CONSTIPATION. SMALL BM YESTERDAY EVENING AFTER DULCOLAX. ANOTHER DULCOLAX SUPPOSITORY ADMINISTERED AT THIS TIME.
--- NOTE | 2020-02-01 12:10 | NUR ---
Discharge Note: Pt was discharged to [facility] located at [address] [place] [address]; ([phone]). Pt was picked up by his son, Reilly ([phone]), at around 1pm. Upon discharge, the pt appeared to be in a euthymic mood and presented with a calm affect. Pt appears to be ambulatory with a steady gait. Pt appears to be oriented x3 (time, place, and self). Pt denied both suicidal and homicidal ideation as well as auditory and visual hallucinations. Pt appeared to be well groomed and appropriately dressed. Pt will be under the care of psychiatrist at the facility, Dr. Mercer, located at [address], [place] [address]; and will be under the care of service team leader, Dr. Camarillo, located at [address], [place] [address]; .
--- NOTE | 2020-02-01 13:15 | NUR ---
RN DC NOTE- PT DC TO ASSISTED LIVING FACILITY VIA PERSONAL AUTOMOBILE AND FAMILY MEMBER. PT IS ALERT ORIENTED TO PERSON PLACE TIME AND PURPOSE. DENIES SI HI AH VH AT PRESENT MOMENT. VITAL SIGNS STABLE, DISCHARGE PLAN AND CARE OF PLAN AND MEDICATIONS REVIEWED AND PT VERBALIZED UNDERSTANDING. VALUABLES RETURNED AND SIGNED FOR. ID [id number] REMOVED AND PT ESCORTED OFF OF UNIT BY STAFF.
== END 2020-02-01 13:15 | DRG 885 ==
LOC: GPS 17:44
PROVIDERS: ADMIT Psychiatry & Neurology Psychiatry; ATTEND Nurse Practitioner Acute Care
DX: F31.64 Bipolar disorder, current episode mixed, severe, with psychotic features (principal); R45.851 Suicidal ideations; F41.9 Anxiety disorder, unspecified; E78.5 Hyperlipidemia, unspecified; M19.90 Unspecified osteoarthritis, unspecified site; N40.0 Benign prostatic hyperplasia without lower urinary tract symptoms; Z86.718 Personal history of other venous thrombosis and embolism; Z85.820 Personal history of malignant melanoma of skin; Z85.72 Personal history of non-Hodgkin lymphomas; T39.1X1S Poisoning by 4-Aminophenol derivatives, accidental (unintentional), sequela; Z79.899 Other long term (current) drug therapy
CPT/HCPCS: 36415; 71045-TC; 80048-TC; 80061-TC; 80076-TC; 82962-TC; 85025-TC